=== PATIENT | male | born 1955 | race Caucasian/White ===

== ENCOUNTER 2016-08-11 20:00 | Inpatient (IN) | payer BC ==
--- NOTE | ~2016-08-11 | DS ---
Discharge Summary [facility] [address] [place]. [address] NAME: BASHIR MERINO : 53 STATUS : DIS IN PAT#: [id number] AGE: 61 ADM/REG DATE : 08/11/16 MR#: [id number] REPORT SERV DATE: 08/14/16 DICTATED BY: TERESA ROBLES DATE: 08/14/16 REPORT STATUS : Draft TRANSCRIBED BY: MODL DATE: 08/14/16 ADMISSION DATE: 08/11/2016 DISCHARGE DATE: 08/14/2016 FINAL HOSPITAL DIAGNOSES: 1. Hyponatremia secondary to EtOH. 2. Hypertension. 3. Hypokalemia. CONSULTATIONS: None. PROCEDURES: None. CURRENT PHYSICAL FINDINGS AND HPI: Please see dictated H and P by Dr. Hays. In brief, the patient is a 61-year-old male who presented with recurrent hyponatremia and EtOH abuse. Vital signs at time of admission, BP was 111/60. Temp, he has been afebrile during his hospital stay. His heart rates have been in the 70s to 80s. LAB WORK: When he initially presented, his sodium was 119. Through his hospital stay, he has been 128 and 129 on the past several days. He had some initial hypokalemia at 2.5, which was replaced and he has been 3.5 the past several days. He had some low phosphorus, which was repleted also. Albumin was 3. LFTs were within reasonable limits. AST, ALT were only markedly elevated, AST of 46, alkaline phosphatase of 129. Troponin was less than 0.02. Alcohol was less than 10. Tylenol was less than 2 and aspirin was less than 1.7. Serum osmolality was 259. Ammonia was 26. Lactate was 0.8. Initial white count was 13.9, recheck the following day was 10.8. H and H were roughly 10.5 and 27.5. His MCV was 90.6. Blood cultures are no growth at two days. Radiographs were done of his chest and shoulder and humerus showing previously known chronic changes. HOSPITAL COURSE: The patient was admitted for hyponatremia. Fortunately, he was not having any significant symptoms such as confusion and fortunately, he had tapered some of his alcohol intake prior to presenting and was not having any withdrawal symptoms. He was placed on frequent BMP, Ativan as needed, and initially given sodium IV. He was placed on the alcohol withdrawal profile. I saw him the following day. A multivitamin was requested. A serum osmolality was requested. His IV fluids were stopped in favor of fluid restriction. He then complained of some difficulty moving his right arm, which was worse after recent fall, but has been chronic. He had previous injury changes noted. It was actually improving the following day on 08/13/2016. His BMPs were spaced out further. He was ambulatory to the restroom. He had no further complaints and still was not having any signs of withdrawal or signs and symptoms of seizure from the hyponatremia. I reassessed him on 08/14/2016, his sodium had increased to 128. He felt comfortable discharging home. His was here to take him home and will be available to supervise him at home. He appears to be out of the sodium range where he would have any seizures, and he is outside the DT range. His sodium corrected by approximately ten points during his hospital stay. Discharge Summary [address] [place]. [address] NAME: BASHIR MERINO : 53 STATUS : DIS IN PAT#: [id number] AGE: 61 ADM/REG DATE : 08/11/16 MR#: [id number] REPORT SERV DATE: 08/14/16 DICTATED BY: TERESA ROBLES DATE: 08/14/16 REPORT STATUS : Draft TRANSCRIBED BY: FABY DATE: 08/14/16 DISPOSITION: He is discharged home. He will resume the Zestril that he was on at home 40 mg one a day. I have recommended he get a multivitamin tablet and B complex replacement. His asked that if he can take [id number] potassium and that should be fine. He was given a prescription for folic acid to complete a five day course. He was encouraged to abstain from alcohol and he was encouraged to follow up with his primary care physician in a week or two to make sure his sodium continues to improve. He will continue the 1.2-1.5 fluid restriction for the next couple of days. TLF/MODL Teresa Robles M.D. / [id number] CC: Rodolfo Zavaleta MD
--- NOTE | ~2016-08-11 | HP ---
History And Physical [place] [id number] [facility] [place]. [address] NAME: BASHIR MERINO : 53 STATUS : ADM IN [facility]#: [id number] AGE: 61 ADM/REG DATE : 08/11/16 MR#: [id number] REPORT SERV DATE: 08/11/16 DICTATED BY: ARIES GRUBBS DATE: 08/11/16 REPORT STATUS : Draft TRANSCRIBED BY: MODL DATE: 08/11/16 DATE OF ADMISSION: 08/11/2016 CHIEF COMPLAINT: Unsteady gait and weakness. HISTORY OF PRESENT ILLNESS: This is a 61-year-old male, who has a history of severe alcohol abuse and recurrent admissions for severe hyponatremia, presents today with similar complaints. History is obtained from the patient and the ER physician, who had spoken to his as well. His data available on the [employer] system is also reviewed. According to available data, Mr. Merino, who consume excessive amounts of beer, at least 24 bottles a day, has been having difficulty walking and weakness for the last two days. His felt that he always did this when his sodium went too low. She decided to bring him to the emergency room to be evaluated. In the emergency room, initial workup revealed severe hyponatremia with a serum sodium of 119. His potassium was 2.5, and Hospitalist Service is asked to admit him for further evaluation and treatment. At the time of my evaluation, he denied any chest pain, palpitations, or orthopnea. He was awake and alert, oriented to time, place, and person. He was able to respond appropriately. However, his facts were quite confused. When asked how many beers he drinks, he said two beers a month. When I asked him how much he drank every day, he said about 18 to 20. He has had no recent falls or loss of consciousness according to him. He has had no fevers, chills, nausea, vomiting, diarrhea, hematemesis, hematochezia, or hematuria. No other history of recent travel or exposures other than those mentioned above. PAST MEDICAL HISTORY: Significant for history of excessive alcohol use and alcoholism, tobacco use, and hypertension. He also has chronic pain in his right shoulder. SOCIAL HISTORY: He drinks about 24 bottles of beer daily, smokes. Denied recreational drug use. He is currently disabled. FAMILY HISTORY: Noncontributory. MEDICATIONS: At home were reviewed by me in the chart today and reordered by me. REVIEW OF SYSTEMS: As in history of present illness. All other systems were reviewed in detail and are quite unremarkable. PHYSICAL EXAMINATION: GENERAL: This is a 61-year-old not in any acute distress. HEENT: Head is atraumatic, normocephalic. He is alert, awake, oriented to time, place, and person. His pupils are equal, reacting to light and accommodating. External ocular muscles are intact. Membranes are moist and pink. Sclerae are nonicteric. History And Physical [address] [place]. [address] NAME: BASHIR MERINO : 53 STATUS : ADM IN [facility]#: [id number] AGE: 61 ADM/REG DATE : 08/11/16 MR#: [id number] REPORT SERV DATE: 08/11/16 DICTATED BY: ARIES GRUBBS DATE: 08/11/16 REPORT STATUS : Draft TRANSCRIBED BY: FABY DATE: 08/11/16 NECK: Supple with no jugular venous distention, lymphadenopathy, or thyromegaly. LUNGS: Clear to auscultation with no wheezes, rubs, or crackles. HEART: Heart sounds were regular with no murmurs, rubs, or gallops. ABDOMEN: Soft, nontender. Bowel sounds are present. EXTREMITIES: Showed no cyanosis, clubbing, or edema. NEUROLOGIC: Grossly intact. No focal deficits. Higher functions appeared to be intact. VITAL SIGNS: Today showed a temperature of 97.4, pulse 65, respirations 16 a minute, blood pressure was 111/60 upon arrival. Oxygen saturations were 97% on 2 L via nasal cannula. LABORATORY DATA: Reviewed on the [employer] system showed sodium of 119, potassium 2.5, chloride 78, and bicarb of 28. BUN was 22, the creatinine was 0.86, glucose was 99. Alkaline phosphatase was 129, ALT was 40, AST 46, and lipase was not done today. Troponin was 0.02. [place] [address], hemoglobin was 10.7, hematocrit 28.7, and platelet count was 256,000. His prothrombin time was 15.7 with INR of 1.3. Urinalysis was not performed today. Films of the chest x-ray were reviewed by me on the PACS today and interpreted by me. Per my interpretation, there is no acute lobar consolidation or pleural effusion seen. A 12-lead EKG done in the emergency room was also reviewed and interpreted by me. There is normal sinus rhythm with a rate of [address]-T changes. IMPRESSION: 1. Severe hyponatremia. 2. Hypokalemia. 3. Alcoholism. 4. Hypertension. 5. Tobacco abuse. 6. Leukocytosis. 7. Chronic pain in shoulder and leg. PLAN: We will admit Mr. Merino to the Hospitalist Service with telemetry. We will start him on normal saline slowly and cautiously. Monitor his sodium levels with chemistry done every four hours. We will also replace potassium and follow with chemistry. We will also give him IV thiamine and folate as well. We will obtain cultures including urine and check his lactate level as well. His alcohol level was not checked today, which we will also order. He will be on unfractionated heparin for DVT prophylaxis while here. Please see today's orders for all the details. I have discussed the above plans with the patient, questions were answered, and he is agreeable to the above recommendations. Hospitalist Service will be following him during his stay here. /FABY Aries Grubbs M.D. History And Physical [address] [address] NAME: BASHIR MERINO : 53 STATUS : ADM IN [facility]#: [id number] AGE: 61 ADM/REG DATE : 08/11/16 MR#: [id number] REPORT SERV DATE: 08/11/16 DICTATED BY: ARIES GRUBBS DATE: 08/11/16 REPORT STATUS : Draft TRANSCRIBED BY: FABY DATE: 08/11/16 / [id number] CC: Rodolfo Reyes MD
[~2016-08-11 20:00] MED LIST: LISINOPRIL40 MG PO; LOP25 PO; LOP50 PO; MEP50TAB PO; NEUR300 PO; OMEGA RED; OMEGA RED PO; PROTONIX PO; X5 PO; XANAX1 MG PO
[2016-08-11 21:19] LABS: BASOPHILS 0.1 %; BASOPHILS ABSOLUTE 0.02 10/3/uL (0.0-0.16); EOSINOPHILS 0.2 %; EOSINOPHILS ABSOLUTE 0.03 10/3/uL (0.0-0.53); HEMOGLOBIN 10.7 g/dL (13.6-17.8); IMMATURE GRANULOCYTES ABSOLUTE 0.14 10/3/uL (0.0-0.11); LYMPHOCYTES 12.9 %; MEAN CORPUS HGB CONC 37.3 g/dL (32.0-36.0); MEAN CORPUSCULAR HEMOGLOB 33.8 pg (26.0-34.0); MEAN PLATELET VOLUME 9.4 fL (9.2-13.0); MONOCYTES 13.2 %; MONOCYTES ABSOLUTE 1.84 10/3/uL (0.21-1.20); NEUTROPHILS 72.6 %; NEUTROPHILS ABSOLUTE 10.09 10/3/uL (2.02-8.40); PLATELET COUNT 256 10/3/uL (150-400); RED CELL COUNT 3.17 10/6/uL (4.7-6.1)
[2016-08-11 21:23] LABS: ER CBC TAT 0 Hrs 12 Mins; HEMATOCRIT 28.7 % (40.0-51.0); MANUAL DIFF NO %; MEAN CORPUSCULAR VOLUME 90.5 fL (80-100); RBC DISTRIBUTION WIDTH 15.7 % (12.0-16.0); WHITE BLOOD CELLS 13.9 10/3/uL (4.5-10.5)
[2016-08-11 21:26] LABS: INTERNATIONAL NORMAL RATI 1.3 UNITS (-); PROTIME (NOT ORD) 15.7 SEC (12.0-14.5)
[2016-08-11 21:35] LABS: A/G RATIO 0.9 (0.7-1.9); CO2 (CARBON DIOXIDE) 28 MMOL/L (24-34); CPK (IF ELEVATED MB BANDS) 70 U/L (0-200); CREATININE 0.86 MG/DL (0.70-1.30); GFR AFRICAN AMERICAN 108 ML/MIN (>=60); GFR NON AFRICAN AMERICAN 93 ML/MIN (>=60); GLOBULIN 3.3 G/DL (2.5-4.1); GLUCOSE, SERUM 99 MG/DL (60-99); SGOT(AST) 46 U/L (5-40); SGPT(ALT) 40 U/L (5-65); TOTAL PROTEIN 6.3 G/DL (6.0-8.5); TROPONIN I <0.02 NG/ML (<0.05)
[2016-08-11 21:36] LABS: ACETAMINOPHEN LEVEL (TYLENOL) < 2.0 MCG/ML (10.0-20.0); ALCOHOL < 10 MG/DL (0); ALKALINE PHOSPHATASE 129 U/L (45-117); BUN (BLOOD UREA NITROGEN) 22 MG/DL (6-23); CALCIUM, SERUM 7.9 MG/DL (8.5-10.4); CHLORIDE, SERUM 78 MMOL/L (96-112); DIRECT BILIRUBIN 0.6 MG/DL (0.0-0.4); INDIRECT BILIRUBIN(NOT ORDER) 0.6 MG/DL (0.1-0.9); POTASSIUM, SERUM 2.5 MMOL/L (3.5-5.3); SALICYLATE < 1.7 MG/DL (-); SODIUM, SERUM 119 MMOL/L (135-148); TOTAL BILIRUBIN 1.2 MG/DL (0-1.2)
[2016-08-11 21:37] LABS: LACTATE 0.8 MMOL/L (0.3-2.4)
[2016-08-11] MEDS ORDERED: ZESTRIL40 MG PO (21:48)
[2016-08-11 22:22] LABS: PROCALCITONIN 0.27 ng/mL (<0.5)
[2016-08-12 01:32] LABS: BUN (BLOOD UREA NITROGEN) 21 MG/DL (6-23); CALCIUM, SERUM 8.3 MG/DL (8.5-10.4); CHLORIDE, SERUM 80 MMOL/L (96-112); CO2 (CARBON DIOXIDE) 27 MMOL/L (24-34); CREATININE 0.77 MG/DL (0.70-1.30); GFR AFRICAN AMERICAN 113 ML/MIN (>=60); GFR NON AFRICAN AMERICAN 97 ML/MIN (>=60); GLUCOSE, SERUM 103 MG/DL (60-99)
[2016-08-12 01:33] LABS: POTASSIUM, SERUM 2.7 MMOL/L (3.5-5.3); SODIUM, SERUM 119 MMOL/L (135-148)
[2016-08-12 07:26] LABS: BASOPHILS 0.2 %; BASOPHILS ABSOLUTE 0.02 10/3/uL (0.0-0.16); EOSINOPHILS 0.4 %; EOSINOPHILS ABSOLUTE 0.04 10/3/uL (0.0-0.53); HEMATOCRIT 27.9 % (40.0-51.0); HEMOGLOBIN 10.5 g/dL (13.6-17.8); IMMATURE GRANULOCYTES 1.4 %; IMMATURE GRANULOCYTES ABSOLUTE 0.15 10/3/uL (0.0-0.11); LYMPHOCYTES 17.8 %; LYMPHOCYTES ABSOLUTE 1.92 10/3/uL (0.67-4.30); MEAN CORPUS HGB CONC 37.6 g/dL (32.0-36.0); MEAN CORPUSCULAR HEMOGLOB 34.1 pg (26.0-34.0); MEAN CORPUSCULAR VOLUME 90.6 fL (80-100); MEAN PLATELET VOLUME 9.1 fL (9.2-13.0); MONOCYTES 11.8 %; MONOCYTES ABSOLUTE 1.27 10/3/uL (0.21-1.20); NEUTROPHILS 68.4 %; PLATELET COUNT 259 10/3/uL (150-400); RBC DISTRIBUTION WIDTH 15.8 % (12.0-16.0); RED CELL COUNT 3.08 10/6/uL (4.7-6.1); WHITE BLOOD CELLS 10.8 10/3/uL (4.5-10.5)
[2016-08-12 07:27] LABS: MANUAL DIFF NO %
[2016-08-12 07:41] LABS: CALCIUM, SERUM 8.3 MG/DL (8.5-10.4); CHLORIDE, SERUM 86 MMOL/L (96-112); CO2 (CARBON DIOXIDE) 25 MMOL/L (24-34); CREATININE 0.64 MG/DL (0.70-1.30); GFR AFRICAN AMERICAN 122 ML/MIN (>=60); GFR NON AFRICAN AMERICAN 105 ML/MIN (>=60); GLUCOSE, SERUM 95 MG/DL (60-99); PHOSPHORUS, SERUM 2.1 MG/DL (2.5-4.5); SODIUM, SERUM 123 MMOL/L (135-148)
[2016-08-12 07:52] LABS: BUN (BLOOD UREA NITROGEN) 16 MG/DL (6-23); POTASSIUM, SERUM 2.9 MMOL/L (3.5-5.3)
[2016-08-12 08:26] LABS: PLATELET ESTIMATE ADQ (ADEQUATE); RBC MORPHOLOGY NORM (NORMAL)
[2016-08-12 15:31] LABS: BUN (BLOOD UREA NITROGEN) 15 MG/DL (6-23); CALCIUM, SERUM 8.1 MG/DL (8.5-10.4); CHLORIDE, SERUM 90 MMOL/L (96-112); CO2 (CARBON DIOXIDE) 25 MMOL/L (24-34); CREATININE 0.54 MG/DL (0.70-1.30); GFR AFRICAN AMERICAN 130 ML/MIN (>=60); GFR NON AFRICAN AMERICAN 113 ML/MIN (>=60); GLUCOSE, SERUM 95 MG/DL (60-99); SODIUM, SERUM 125 MMOL/L (135-148)
[2016-08-12 15:32] LABS: POTASSIUM, SERUM 3.7 MMOL/L (3.5-5.3)
[2016-08-12 20:35] LABS: BUN (BLOOD UREA NITROGEN) 13 MG/DL (6-23); CALCIUM, SERUM 8.2 MG/DL (8.5-10.4); CHLORIDE, SERUM 90 MMOL/L (96-112); CO2 (CARBON DIOXIDE) 25 MMOL/L (24-34); CREATININE 0.66 MG/DL (0.70-1.30); GFR AFRICAN AMERICAN 120 ML/MIN (>=60); GFR NON AFRICAN AMERICAN 104 ML/MIN (>=60); GLUCOSE, SERUM 103 MG/DL (60-99); POTASSIUM, SERUM 3.8 MMOL/L (3.5-5.3); SODIUM, SERUM 126 MMOL/L (135-148)
[2016-08-13 07:36] LABS: BUN (BLOOD UREA NITROGEN) 10 MG/DL (6-23); CALCIUM, SERUM 8.6 MG/DL (8.5-10.4); CHLORIDE, SERUM 91 MMOL/L (96-112); CO2 (CARBON DIOXIDE) 26 MMOL/L (24-34); CREATININE 0.61 MG/DL (0.70-1.30); GFR AFRICAN AMERICAN 124 ML/MIN (>=60); GFR NON AFRICAN AMERICAN 107 ML/MIN (>=60); GLUCOSE, SERUM 99 MG/DL (60-99); POTASSIUM, SERUM 3.7 MMOL/L (3.5-5.3); SODIUM, SERUM 127 MMOL/L (135-148)
[2016-08-13 10:58] LABS: BUN (BLOOD UREA NITROGEN) 12 MG/DL (6-23); CALCIUM, SERUM 8.7 MG/DL (8.5-10.4); CHLORIDE, SERUM 93 MMOL/L (96-112); CO2 (CARBON DIOXIDE) 26 MMOL/L (24-34); CREATININE 0.66 MG/DL (0.70-1.30); GFR AFRICAN AMERICAN 120 ML/MIN (>=60); GFR NON AFRICAN AMERICAN 104 ML/MIN (>=60); GLUCOSE, SERUM 67 MG/DL (60-99); POTASSIUM, SERUM 3.5 MMOL/L (3.5-5.3); SODIUM, SERUM 129 MMOL/L (135-148)
[2016-08-14 07:21] LABS: BUN (BLOOD UREA NITROGEN) 9 MG/DL (6-23); CALCIUM, SERUM 8.6 MG/DL (8.5-10.4); CHLORIDE, SERUM 90 MMOL/L (96-112); CO2 (CARBON DIOXIDE) 24 MMOL/L (24-34); CREATININE 0.57 MG/DL (0.70-1.30); GFR AFRICAN AMERICAN 128 ML/MIN (>=60); GFR NON AFRICAN AMERICAN 110 ML/MIN (>=60); GLUCOSE, SERUM 99 MG/DL (60-99); POTASSIUM, SERUM 3.5 MMOL/L (3.5-5.3); SODIUM, SERUM 128 MMOL/L (135-148)
[2016-08-14] MEDS ORDERED: FOLIC PO (15:50)
== END 2016-08-14 16:21 | disposition home or self-care (01) | DRG 641 ==
LOC: ER 20:00 → 4SO 22:51
PROVIDERS: Internal Medicine; Internal Medicine Pulmonary Disease; Nurse Practitioner
DX: E87.1 Hypo-osmolality and hyponatremia (principal); I10 Essential (primary) hypertension; F10.20 Alcohol dependence, uncomplicated; Y90.0 Blood alcohol level of less than 20 mg/100 ml; F17.200 Nicotine dependence, unspecified, uncomplicated; E87.6 Hypokalemia; G89.29 Other chronic pain; M79.606 Pain in leg, unspecified; M25.519 Pain in unspecified shoulder
CPT/HCPCS: 71010; 73030-RT; 73060-RT; 80048; 80053; 80305; 80307; 81001; 82140; 82248; 82550; 83605; 83735; 83930; 84100; 84145; 84484; 85025; 85610; 85730; 87040; 87449; 93005; 96360; 99285; A9270-GY; J0360; J3411

== ENCOUNTER 2016-08-23 12:43 | Inpatient (IN) | payer BC ==
--- NOTE | ~2016-08-23 | DS ---
Discharge Summary [facility] [address] [facility] [place]. [address] NAME: BASHIR MERINO : 53 STATUS : DIS IN PAT#: [id number] AGE: 61 ADM/REG DATE : 08/23/16 MR#: [id number] REPORT SERV DATE: 08/31/16 DICTATED BY: JR. ZAVALA WILLIAM JOHN DATE: 08/30/16 REPORT STATUS : Draft TRANSCRIBED BY: FABY DATE: 08/30/16 ADMISSION DATE: 08/23/2016 DISCHARGE DATE: 08/30/2016 DISCHARGE DIAGNOSES: Include: 1. Cerebellar ataxia with frequent falls. 2. Alcohol use with delirium tremens. 3. Anxiety. 4. Anemia of chronic disease. 5. Essential hypertension. OPERATIONS/PROCEDURES AND TREATMENTS: Include: 1. Alcohol withdrawal protocol. 2. Chest x-ray done 08/23/2016, which showed no acute process. DISCHARGE MEDICATIONS: Include: 1. Lisinopril 40 mg orally daily. 2. Paxil 10 mg orally daily. 3. Flomax 0.4 mg daily. 4. Clonidine-TTS three patch daily. 5. Albuterol metered-dose inhaler two puffs q.4 hours p.r.n. 6. Ativan 1 mg orally three times a day for two days, then twice a day for two days, then daily for three days, then none. HOSPITAL COURSE: The patient is a 61-year-old white male with a history of severe alcohol abuse, recently admitted to the hospital and discharged on 08/11/2016 for electrolyte abnormalities. Discharged home, apparently had only few alcoholic beverages within the ensuing week and a half, and presented to the emergency room for complaint of generalized weakness and inability to ambulate. Please see Dr. Gallo's dictated history and physical for complete details of the presenting history, physical, and data. The patient was admitted to the Clinical Decision Unit for cerebellar ataxia, frequent falls, and alcohol withdrawal. He was placed on the withdrawal protocol and continuously scored rather high on his criteria. He was steadily increased on medications by my partner, Dr. Lagunas up to Librium 50 mg orally twice a day as well as Ativan p.r.n. per protocol. Also, he was on Seroquel and clonidine-TTS three patch. The patient was quite sleepy. His Librium was weaned down and eventually off as was his Seroquel and eventually, I stopped his sliding scale Ativan, put for scheduled Ativan. The patient had no change in his level of function, shakiness, or other withdrawal symptoms. He was awake and interacted. The patient is severely deconditioned. We discussed multiple options. Unfortunately, the patient has no insurance coverage for any sort of inpatient rehabilitation. We did discuss private payment for this. The family elects to take the patient home with home services and plan to go to the [place] this week for further assistance. For discharge exam and laboratory, please see the daily progress note. DISCHARGE DIET: Regular. Discharge Summary [place] [address] [facility] [place]. [address] NAME: BASHIR MERINO : 53 STATUS : DIS IN PAT#: [id number] AGE: 61 ADM/REG DATE : 08/23/16 MR#: [id number] REPORT SERV DATE: 08/31/16 DICTATED BY: JR. ZAVALA WILLIAM JOHN DATE: 08/30/16 REPORT STATUS : Draft TRANSCRIBED BY: FABY DATE: 08/30/16 ACTIVITY: As tolerated. This discharge took 45 minutes for patient encounter, coordination of care, and documentation. WJF/FABY Luis Zavala Jr, MD / [id number] CC: Luis Zavala Jr, MD Martha Ziegler, MD
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
--- NOTE | ~2016-08-23 | IDS ---
Interim Discharge Summary [facility] [address] [place]. [address] NAME: BASHIR MERINO : 53 STATUS : ADM IN PAT#: [id number] AGE: 61 ADM/REG DATE : 08/23/16 MR#: [id number] REPORT SERV DATE: 08/28/16 DICTATED BY: GEETHA ROBBINS DATE: 08/27/16 REPORT STATUS : Draft TRANSCRIBED BY: MODBobby DATE: 08/27/16 ADMISSION DATE: 08/23/2016 DISCHARGE DATE: DATE OF SUMMARY: 08/27/2016. PRINCIPAL DIAGNOSIS: Cerebellar ataxia with frequent falls. SECONDARY DIAGNOSES: Alcoholism with alcohol withdrawal syndrome, anemia of chronic disease, anxiety state, malignant hypertension, leukocytosis, not otherwise specified. HISTORY OF PRESENT ILLNESS: Please see Dr. Gallo's dictation on 08/23/2016. HOSPITAL COURSE: Admitted with ataxia with falls. The patient has recently been hospitalized for alcohol withdrawal syndrome with delirium tremens. The patient was placed on the CIWA protocol which does not have scheduled benzodiazepines, and while he was not in alcohol withdrawal at admission, he went into alcohol withdrawal. Librium was started and had to be advanced up to 50 mg t.i.d. He was to continuously receive Ativan 1 to 2 mg every two hours for high CIWA scores of greater than 10. His adrenergic response was blunted with clonidine which checked his heart rate and blood pressure satisfactory. He was also put on anxiolytics including Paxil and Seroquel with hopes that he would not no longer require intravenous Ativan, and therefore, eligible to go to inpatient rehab. He had been referred to [facility] though his beds were still pending his medical stability. LORIE/FABY Geetha Robbins M.D. / [id number] CC: Rodolfo Collado MD
[2016-08-23 11:20] LABS: BASOPHILS 0.1 %; BASOPHILS ABSOLUTE 0.01 10/3/uL (0.0-0.16); EOSINOPHILS 0.1 %; EOSINOPHILS ABSOLUTE 0.02 10/3/uL (0.0-0.53); HEMATOCRIT 32.6 % (40.0-51.0); IMMATURE GRANULOCYTES 0.5 %; IMMATURE GRANULOCYTES ABSOLUTE 0.09 10/3/uL (0.0-0.11); LYMPHOCYTES 15.1 %; LYMPHOCYTES ABSOLUTE 2.64 10/3/uL (0.67-4.30); MANUAL DIFF NO %; MEAN CORPUS HGB CONC 33.7 g/dL (32.0-36.0); MEAN CORPUSCULAR VOLUME 97.9 fL (80-100); MEAN PLATELET VOLUME 8.5 fL (9.2-13.0); MONOCYTES 6.7 %; MONOCYTES ABSOLUTE 1.17 10/3/uL (0.21-1.20); NEUTROPHILS 77.5 %; NEUTROPHILS ABSOLUTE 13.61 10/3/uL (2.02-8.40); PLATELET COUNT 453 10/3/uL (150-400); RBC DISTRIBUTION WIDTH 16.7 % (12.0-16.0); RED CELL COUNT 3.33 10/6/uL (4.7-6.1); WHITE BLOOD CELLS 17.5 10/3/uL (4.5-10.5)
[2016-08-23 11:34] LABS: A/G RATIO 1.1 (0.7-1.9); ALBUMIN 3.5 G/DL (3.5-5.0); ALKALINE PHOSPHATASE 111 U/L (45-117); BUN (BLOOD UREA NITROGEN) 10 MG/DL (6-23); CALCIUM, SERUM 8.8 MG/DL (8.5-10.4); CHLORIDE, SERUM 96 MMOL/L (96-112); CO2 (CARBON DIOXIDE) 26 MMOL/L (24-34); CREATININE 0.68 MG/DL (0.70-1.30); GFR AFRICAN AMERICAN 119 ML/MIN (>=60); GFR NON AFRICAN AMERICAN 102 ML/MIN (>=60); GLOBULIN 3.3 G/DL (2.5-4.1); GLUCOSE, SERUM 84 MG/DL (60-99); POTASSIUM, SERUM 3.5 MMOL/L (3.5-5.3); SGOT(AST) 34 U/L (5-40); SGPT(ALT) 57 U/L (5-65); SODIUM, SERUM 135 MMOL/L (135-148); TOTAL BILIRUBIN 1.4 MG/DL (0-1.2); TOTAL PROTEIN 6.8 G/DL (6.0-8.5)
[~2016-08-23 12:43] MED LIST changes: +FOLIC PO; +ZESTRIL40 MG PO
[2016-08-23 14:32] LABS: ASCORBIC ACID (UR NOT ORDER) NEG (NEG); BILIRUBIN, URINE NEGATIVE (NEG); ER URINALYSIS TAT 0 Hrs 11 Mins; KETONE, URINE NEGATIVE (NEG); LEUKOCYTE ESTERASE(NOT OR NEG (NEG); NITRITE (URINE) NEG (NEG); WBC (NOT ORDERED) (RFLEX) 1 (0-5)
[2016-08-23 15:26] LABS: ACETAMINOPHEN LEVEL (TYLENOL) < 2.0 MCG/ML (10.0-20.0)
[2016-08-23 15:27] LABS: ALCOHOL < 10 MG/DL (0); SALICYLATE < 1.7 MG/DL (-)
[2016-08-23 15:58] LABS: AMPHETAMINES (NOT ORD) NEG (NEG); BARBITURATES (NOT ORDERED NEG (NEG); BENZODIAZEPINES (NOT ORD) POS (NEG); CANNABINOIDS (THC) NEG (NEG); COCAINE (NOT ORDERED) NEG (NEG); OPIATES NEG (NEG); PHENCYCLIDINE(PCP) NEG (NEG); TRICYCLICS NEG (NEG)
[2016-08-23] MEDS ORDERED: AUG875 PO (16:23)
[2016-08-23] MEDS ORDERED: STERAPRED DS10 MG PO (16:23)
[2016-08-23] MEDS ORDERED: PROAIR HFA INH (16:24)
[2016-08-23] MEDS ORDERED: LISINOPRIL40 MG PO (16:24)
[2016-08-23] MEDS ORDERED: XANAX1 MG PO (16:24)
[2016-08-23 22:07] LABS: PROCALCITONIN < 0.05 ng/mL (<0.5)
[2016-08-24 00:35] LABS: FREE T4 1.01 NG/DL (0.76-1.46)
[2016-08-24 04:19] LABS: BASOPHILS 0.1 %; BASOPHILS ABSOLUTE 0.02 10/3/uL (0.0-0.16); EOSINOPHILS 0.4 %; EOSINOPHILS ABSOLUTE 0.06 10/3/uL (0.0-0.53); HEMOGLOBIN 9.6 g/dL (13.6-17.8); IMMATURE GRANULOCYTES 0.5 %; IMMATURE GRANULOCYTES ABSOLUTE 0.08 10/3/uL (0.0-0.11); LYMPHOCYTES 16.7 %; LYMPHOCYTES ABSOLUTE 2.55 10/3/uL (0.67-4.30); MEAN CORPUS HGB CONC 34.4 g/dL (32.0-36.0); MEAN CORPUSCULAR HEMOGLOB 33.4 pg (26.0-34.0); MEAN CORPUSCULAR VOLUME 97.2 fL (80-100); MEAN PLATELET VOLUME 8.7 fL (9.2-13.0); MONOCYTES 6.5 %; MONOCYTES ABSOLUTE 0.99 10/3/uL (0.21-1.20); NEUTROPHILS 75.8 %; NEUTROPHILS ABSOLUTE 11.53 10/3/uL (2.02-8.40); PLATELET COUNT 375 10/3/uL (150-400); RBC DISTRIBUTION WIDTH 16.3 % (12.0-16.0); RED CELL COUNT 2.87 10/6/uL (4.7-6.1); WHITE BLOOD CELLS 15.2 10/3/uL (4.5-10.5)
[2016-08-24 04:20] LABS: HEMATOCRIT 27.9 % (40.0-51.0); MANUAL DIFF NO %
[2016-08-24 04:29] LABS: ALBUMIN 2.8 G/DL (3.5-5.0); BUN (BLOOD UREA NITROGEN) 11 MG/DL (6-23); CHLORIDE, SERUM 100 MMOL/L (96-112); CO2 (CARBON DIOXIDE) 26 MMOL/L (24-34); CREATININE 0.53 MG/DL (0.70-1.30); GFR AFRICAN AMERICAN 131 ML/MIN (>=60); GFR NON AFRICAN AMERICAN 113 ML/MIN (>=60); GLUCOSE, SERUM 76 MG/DL (60-99); POTASSIUM, SERUM 3.6 MMOL/L (3.5-5.3); SODIUM, SERUM 137 MMOL/L (135-148)
[2016-08-24 04:33] LABS: CALCIUM, SERUM 7.8 MG/DL (8.5-10.4); PHOSPHORUS, SERUM 3.2 MG/DL (2.5-4.5)
[2016-08-27 09:51] LABS: BASOPHILS 0.2 %; BASOPHILS ABSOLUTE 0.03 10/3/uL (0.0-0.16); EOSINOPHILS 0.6 %; EOSINOPHILS ABSOLUTE 0.09 10/3/uL (0.0-0.53); HEMATOCRIT 30.3 % (40.0-51.0); HEMOGLOBIN 10.6 g/dL (13.6-17.8); IMMATURE GRANULOCYTES 0.8 %; IMMATURE GRANULOCYTES ABSOLUTE 0.13 10/3/uL (0.0-0.11); LYMPHOCYTES 11.9 %; LYMPHOCYTES ABSOLUTE 1.94 10/3/uL (0.67-4.30); MEAN CORPUSCULAR HEMOGLOB 33.2 pg (26.0-34.0); MEAN PLATELET VOLUME 9.2 fL (9.2-13.0); MONOCYTES 7.8 %; MONOCYTES ABSOLUTE 1.26 10/3/uL (0.21-1.20); NEUTROPHILS 78.7 %; NEUTROPHILS ABSOLUTE 12.79 10/3/uL (2.02-8.40); PLATELET COUNT 361 10/3/uL (150-400); RBC DISTRIBUTION WIDTH 16.1 % (12.0-16.0); RED CELL COUNT 3.19 10/6/uL (4.7-6.1); RETICULOCYTE COUNT 4.1 % (0.5-2.5); RETICULOCYTE COUNT ABSOLUTE 131.4 10/3/uL (20.2-119.8); WHITE BLOOD CELLS 16.2 10/3/uL (4.5-10.5)
[2016-08-27 09:52] LABS: MANUAL DIFF NO %
[2016-08-27 10:28] LABS: % IRON SAT 19 % (20-50); ALBUMIN 3.2 G/DL (3.5-5.0); ALKALINE PHOSPHATASE 105 U/L (45-117); CALCIUM, SERUM 8.5 MG/DL (8.5-10.4); CHLORIDE, SERUM 102 MMOL/L (96-112); CO2 (CARBON DIOXIDE) 24 MMOL/L (24-34); CREATININE 0.66 MG/DL (0.70-1.30); FERRITIN 732 NG/ML (26-388); GFR AFRICAN AMERICAN 120 ML/MIN (>=60); GFR NON AFRICAN AMERICAN 104 ML/MIN (>=60); GLOBULIN 3.2 G/DL (2.5-4.1); IRON BINDING CAPACITY 220 MCG/DL (250-450); IRON, SERUM 41 MCG/DL (35-150); SGOT(AST) 17 U/L (5-40); SGPT(ALT) 38 U/L (5-65); SODIUM, SERUM 135 MMOL/L (135-148); TOTAL PROTEIN 6.4 G/DL (6.0-8.5)
[2016-08-27 10:36] LABS: BUN (BLOOD UREA NITROGEN) 6 MG/DL (6-23); GLUCOSE, SERUM 93 MG/DL (60-99); TOTAL BILIRUBIN 0.6 MG/DL (0-1.2)
[2016-08-29 06:18] LABS: BUN (BLOOD UREA NITROGEN) 8 MG/DL (6-23); CHLORIDE, SERUM 100 MMOL/L (96-112); CO2 (CARBON DIOXIDE) 24 MMOL/L (24-34); CREATININE 0.59 MG/DL (0.70-1.30); GFR AFRICAN AMERICAN 126 ML/MIN (>=60); GFR NON AFRICAN AMERICAN 109 ML/MIN (>=60); GLUCOSE, SERUM 97 MG/DL (60-99); POTASSIUM, SERUM 4.1 MMOL/L (3.5-5.3); SODIUM, SERUM 133 MMOL/L (135-148)
[2016-08-29 06:20] LABS: CALCIUM, SERUM 8.9 MG/DL (8.5-10.4)
[2016-08-30] MEDS ORDERED: ATV1 PO ×3 (15:47→15:50)
[2016-08-30] MEDS ORDERED: CATAPRES3 TOP (15:51)
[2016-08-30] MEDS ORDERED: FLOMAX4 PO (15:54)
[2016-08-30] MEDS ORDERED: PAX10 PO (15:55)
== END 2016-08-30 16:41 | disposition home health service (06) | DRG 57 ==
LOC: ER 12:43 → CDU1 19:18 → CDU2 19:45
PROVIDERS: Hospitalist; Internal Medicine; Nurse Practitioner
DX: G31.2 Degeneration of nervous system due to alcohol (principal); F10.231 Alcohol dependence with withdrawal delirium; D63.8 Anemia in other chronic diseases classified elsewhere; I10 Essential (primary) hypertension; F17.210 Nicotine dependence, cigarettes, uncomplicated; D50.9 Iron deficiency anemia, unspecified; Z91.81 History of falling; F41.9 Anxiety disorder, unspecified; N40.1 Benign prostatic hyperplasia with lower urinary tract symptoms; R33.8 Other retention of urine; D72.829 Elevated white blood cell count, unspecified; T38.0X5A Adverse effect of glucocorticoids and synthetic analogues, initial encounter
CPT/HCPCS: 71010; 80048; 80053; 80069; 80305; 80307; 81001; 82150; 82272; 82607; 82728; 83540; 83550; 83690; 83735; 84145; 84439; 84443; 85025; 85045; 87040; 87070; 87205; 87449; 93005; 94640; 97110-GP; 97161-GP; 97166-GO; 97530-GP; 99285; A9270-GY; G8978-CK-GP; G8979-CJ-GP; J1956; J3411